=== PATIENT | female | born 1995 | race Caucasian/White ===

== ENCOUNTER 2021-05-09 14:16 | Inpatient (IN) | payer BC ==
[~2021-05-09] VITALS: Ht 167.6 cm; Wt 100.0 kg
[2021-05-10] MEDS ORDERED: FENTANYL PF 100 MCG/2ML IV PRN (07:30)
[2021-05-10] MEDS ORDERED: TERBUTALINE 1 MG/ML, 1ML SQ PRN (07:30)
[2021-05-10] MEDS ORDERED: TERBUTALINE 1 MG/ML, 1ML IVPush PRN (07:30)
[2021-05-10] MEDS ORDERED: OXYTOCIN 30U/ 0.9% NaCL 500ML 500 ML IV ONE (07:30)
[2021-05-10] MEDS ORDERED: ONDANSETRON 2MG/ML, 2ML IVPush PRN ×2 (07:30→19:00)
[2021-05-10] MEDS ORDERED: CALCIUM CARBONATE 500 MG TAB.CHEW PO PRN (07:30)
[2021-05-10] MEDS ORDERED: FENTANYL PF 100 MCG/2ML IVPush PRN (07:30)
[2021-05-10 07:37] VITALS: BP 130/74
[2021-05-10 08:03] LABS: BASOPHILS % (AUTO) 0 % (0-1); EOSINOPHILS % (AUTO) 1 % (1-7); LYMPHOCYTES % (AUTO) 19 % (22-44); MEAN CORPUSCULAR HEMOGLOBIN 26.9 pg (27.0-34.8); MEAN CORPUSCULAR HGB CONC 33.2 g/dL (32.4-35.8); MEAN PLATELET VOLUME 9.8 fL (7.4-10.4); MONOCYTES % (AUTO) 5 % (2-9); NEUTROPHILS % (AUTO) 75 % (42-75); PLATELET COUNT 158 x10^3/uL (130-400); RED BLOOD COUNT 4.69 x10^6/uL (3.82-5.3); RED CELL DISTRIBUTION WIDTH 15.7 % (9.6-15.2)
[2021-05-10] MEDS: LACTATED RINGERS 1,000 ML IV SCH ×2 (08:22→18:33)
[2021-05-10] MEDS ORDERED: PLEASE ENTER HEIGHT AND WEIGHT MC SCH (08:30)
[2021-05-10] MEDS ORDERED: PLEASE ENTER ALLERGIES MC SCH (08:30)
[2021-05-10] MEDS ORDERED: MISOPROSTOL 25 MCG TABLET PO PRN (09:00)
[2021-05-10] MEDS ORDERED: MISOPROSTOL 25 MCG TABLET ONE (09:08)
[2021-05-10] MEDS ORDERED: PENICILLIN GK 5,000,000 UNITS in DEXTROSE 5% 100 ML IVPB ONE (09:30)
[2021-05-10] MEDS ORDERED: NEWBORN KIT ONE (10:06)
[2021-05-10 10:12] LABS: ALANINE AMINOTRANSFERASE 14 U/L (12-78); ALBUMIN 2.4 g/dL (3.4-5.0); ANION GAP 9 mmol/L (5-15); CALCIUM 8.3 mg/dL (8.5-10.1); CHLORIDE 111 mmol/L (98-107); CREATININE 0.49 mg/dL (0.55-1.02)
[2021-05-10 10:15] LABS: ALKALINE PHOSPHATASE 96 U/L (45-117); BILIRUBIN,TOTAL 0.2 mg/dL (0.2-1.0); TOTAL PROTEIN 6.2 g/dL (6.4-8.2)
[2021-05-10] MEDS ORDERED: PENICILLIN GK 2,500,000 UNITS in DEXTROSE 5% 100 ML IVPB SCH (13:30)
[2021-05-10] MEDS ORDERED: OXYTOCIN 30U/ 0.9% NaCL 500ML 500 ML IV PRN (14:30)
[2021-05-10] MEDS ORDERED: EPHEDRINE 50 MG/ML, 1ML IVPush PRN ×2 (14:30→19:00)
[2021-05-10] MEDS ORDERED: FENTANYL/BUPIV./NS/PF 250 ML EPIDCONT SCH ×2 (14:30→19:00)
[2021-05-10] MEDS: LACTATED RINGERS 1,000 ML IVBOLUS PRN ×2 (16:33→17:25)
[2021-05-10] MEDS ORDERED: BUPIVACAINE 0.25% ONE (16:59)
[2021-05-10] MEDS ORDERED: DIPHENHYDRAMINE 50 MG/ML, 1ML IVPush PRN (19:00)
[2021-05-10] MEDS ORDERED: LACTATED RINGERS 1,000 ML IVBOLUS PRN (19:00)
[2021-05-10] MEDS ORDERED: LACTATED RINGERS 1,000 ML IV SCH (19:00)
[2021-05-10] MEDS ORDERED: NALOXONE 0.4 MG/ML, 1ML IVPush PRN (19:00)
[2021-05-11] MEDS ORDERED: ONDANSETRON 2MG/ML, 2ML IV PRN (01:00)
[2021-05-11] MEDS ORDERED: MISOPROSTOL 200 MCG TABLET PR PRN (01:00)
[2021-05-11] MEDS ORDERED: DOCUSATE 100 MG CAPSULE PO PRN (01:00)
[2021-05-11] MEDS ORDERED: SIMETHICONE 80 MG CHEW TAB PO PRN (01:00)
[2021-05-11] MEDS: OXYTOCIN 30U/ 0.9% NaCL 500ML 500 ML IV SCH ×3 (01:00→21:00)
[2021-05-11] MEDS ORDERED: OXYcodone/APAP 5/325MG TABLET PO PRN ×2 (01:00)
[2021-05-11 01:10] VITALS: BP 100/64
[2021-05-11 05:30] VITALS: BP 103/66
[2021-05-11] MEDS: CALCIUM CARBONATE 500 MG TAB.CHEW PO PRN (05:42)
[2021-05-11] MEDS: IBUPROFEN 600 MG TABLET PO PRN (06:03)
[2021-05-11 06:23] LABS: BASOPHILS % (AUTO) 0 % (0-1); EOSINOPHILS % (AUTO) 1 % (1-7); LYMPHOCYTES % (AUTO) 15 % (22-44); MEAN CORPUSCULAR HEMOGLOBIN 27.4 pg (27.0-34.8); MEAN CORPUSCULAR HGB CONC 33.7 g/dL (32.4-35.8); MEAN PLATELET VOLUME 9.2 fL (7.4-10.4); MONOCYTES % (AUTO) 7 % (2-9); NEUTROPHILS % (AUTO) 77 % (42-75); PLATELET COUNT 143 x10^3/uL (130-400); RED BLOOD COUNT 4.63 x10^6/uL (3.82-5.3); RED CELL DISTRIBUTION WIDTH 15.8 % (9.6-15.2)
[2021-05-11 07:55] VITALS: BP 101/65
[2021-05-11] MEDS: PRENATAL VIT/IRON/FA 1 EACH TABLET PO SCH (09:00)
[2021-05-11 13:00] VITALS: BP 115/69
[2021-05-11] MEDS ORDERED: POLYETHYLENE GLYCOL 17 GM PACKET ONE (17:14)
[2021-05-11 17:26] VITALS: BP 106/58
[2021-05-11] MEDS ORDERED: POLYETHYLENE GLYCOL 17 GM PACKET NG PRN (17:30)
[2021-05-11 21:05] VITALS: BP 104/64
[2021-05-12] MEDS: CALCIUM CARBONATE 500 MG TAB.CHEW PO PRN (02:53)
[2021-05-12] MEDS: OXYTOCIN 30U/ 0.9% NaCL 500ML 500 ML IV SCH (07:00)
[2021-05-12 07:15] VITALS: BP 113/77
[2021-05-12] MEDS: IBUPROFEN 600 MG TABLET PO PRN (07:43)
[2021-05-12] MEDS: PRENATAL VIT/IRON/FA 1 EACH TABLET PO SCH (09:00)
[2021-05-12 11:55] VITALS: BP 114/76
== END 2021-05-12 13:02 | disposition home or self-care (01) | DRG 807 ==
LOC: LDIP 05-10 06:59 → 2NW 05-11 00:45
PROVIDERS: ADMIT Obstetrics & Gynecology; ATTEND Obstetrics & Gynecology
PROC: 10E0XZZ Delivery of Products of Conception, External Approach (ICD-10-PCS; principal; 2021-05-10)
PROC: 3E033VJ Introduction of Other Hormone into Peripheral Vein, Percutaneous Approach (ICD-10-PCS; 2021-05-10)
PROC: 3E0P7VZ Introduction of Hormone into Female Reproductive, Via Natural or Artificial Opening (ICD-10-PCS; 2021-05-10)
PROC: 10907ZC Drainage of Amniotic Fluid, Therapeutic from Products of Conception, Via Natural or Artificial Opening (ICD-10-PCS; 2021-05-10)
PROC: 3E0R3BZ Introduction of Anesthetic Agent into Spinal Canal, Percutaneous Approach (ICD-10-PCS; 2021-05-10)
PROC: 00HU33Z Insertion of Infusion Device into Spinal Canal, Percutaneous Approach (ICD-10-PCS; 2021-05-10)
DX: O24.429 Gestational diabetes mellitus in childbirth, unspecified control (principal); Z37.0 Single live birth; O99.824 Streptococcus B carrier state complicating childbirth; O99.52 Diseases of the respiratory system complicating childbirth; Z20.822 Contact with and (suspected) exposure to COVID-19; J45.909 Unspecified asthma, uncomplicated; Z3A.38 38 weeks gestation of pregnancy
CPT/HCPCS: 36415; 80053; 82962; 85025; 86592; 86762; 86803; 86850; 86900; 87340; 87635; 87806; G0378; J2540; G0475; J2590; J7120